=== PATIENT | male | born 1950 | race Caucasian/White ===

== ENCOUNTER 2018-08-11 19:38 | Inpatient (IN) | payer MEDICARE ==
[~2018-08-11] VITALS: Ht 185.4 cm; Wt 119.9 kg
--- NOTE | 2018-08-11 19:33 | Emergency Room Report ---
History of Present Illness General Chief Complaint: Lower Extremity Injury Source: Patient, EMS Present Illness HPI Patient is a 67-year-old male who presented for increased right-sided hip pain. Patient had sudden onset of symptoms after a fall. Patient reports of increased difficulty with movements to the hip. Patient given fentanyl 100 mcg prior to arrival by EMS. Patient been unable to ambulate after the fall. Reports being previously healthy and does not take any medications and has no allergies. He denies of the locations of injury or pain Allergies: Coded Allergies: No Known Allergies (Unverified , 08/11/18) Patient History Past Medical History: see triage record Reviewed Nursing Documentation: PMH: Agreed; PSxH: Agreed Nursing Documentation-PMH Past Medical History: No Stated History Review of Systems All Other Systems: negative except mentioned in HPI Physical Exam Vital Signs Date Time Temp Pulse Resp B/P (MAP) Pulse Ox O2 Delivery O2 Flow Rate FiO2 08/11/18 19:21 98.1 64 16 136/70 100 Room Air Sp02 EP Interpretation: reviewed, normal General Appearance: normal inspection, well appearing, no apparent distress, alert, GCS 15, non-toxic Head: atraumatic ENT: normal ENT inspection, hearing grossly normal, normal voice Neck: normal inspection, full range of motion, supple, no bony tend Respiratory: normal inspection, lungs clear, normal breath sounds, no respiratory distress, no retraction, no wheezing Cardiovascular #1: regular rate, rhythm, no edema Gastrointestinal: normal inspection, normal bowel sounds, non tender, soft, no guarding, no hernia Genitourinary: no CVA tenderness Musculoskeletal: normal inspection, back normal, normal range of motion Neurologic: normal inspection, alert, oriented x3, responsive, manager hiv III-XII nml as tested, speech normal Psychiatric: normal inspection, judgement/insight normal, mood/affect normal Skin: normal inspection, normal color, no rash Medical Decision Making Diagnostic Impression: Primary Impression: Hip fracture, right ER Course Patient is a 67-year-old male presented for increased right hip pain. Differential diagnosis include was not limited to fracture, dislocation, contusion among others. Because of complexity of patient's case laboratory testing and imaging studies were ordered. X-ray image of the pelvis showed fracture of the right proximal femur. CT imaging confirmed fracture. Patient was noted to have a fat-containing right inguinal hernia. Patient had previous left inguinal hernia surgery. EKG interpreted by me showed normal sinus rhythm with a rate of [address] or T wave changes.Laboratory testing was unremarkable Patient was given IV morphine for pain. Dr. Leandro Dietz was contacted for inpatient management due to panel physician Labs Test 08/11/18 19:45 White Blood Count 6.1 K/UL (4.8-10.8) Red Blood Count 5.02 M/UL (4.70-6.10) Hemoglobin 15.0 G/DL (14.2-18.0) Hematocrit 43.6 % (42.0-52.0) Mean Corpuscular Volume 87 FL (80-99) Mean Corpuscular Hemoglobin 29.8 PG (27.0-31.0) Mean Corpuscular Hemoglobin Concent 34.3 G/DL (32.0-36.0) Red Cell Distribution Width 11.0 % (11.6-14.8) Platelet Count 221 K/UL (150-450) Mean Platelet Volume 7.3 FL (6.5-10.1) Neutrophils (%) (Auto) 64.7 % (45.0-75.0) Lymphocytes (%) (Auto) 21.5 % (20.0-45.0) Monocytes (%) (Auto) 12.0 % (1.0-10.0) Eosinophils (%) (Auto) 0.8 % (0.0-3.0) Basophils (%) (Auto) 1.0 % (0.0-2.0) Prothrombin Time 10.3 SEC (9.30-11.50) Prothromb Time International Ratio 1.0 (0.9-1.1) Activated Partial Thromboplast Time 24 SEC (23-33) Sodium Level 140 MMOL/L (136-145) Potassium Level 3.6 MMOL/L (3.5-5.1) Chloride Level 105 MMOL/L (98-107) Carbon Dioxide Level 28 MMOL/L (21-32) Anion Gap 8 mmol/L (5-15) Blood Urea Nitrogen 11 mg/dL (7-18) Creatinine 0.9 MG/DL (0.55-1.30) Estimat Glomerular Filtration Rate > 60 mL/min (>60) Glucose Level 125 MG/DL (74-106) Calcium Level 8.7 MG/DL (8.5-10.1) Total Bilirubin 0.9 MG/DL (0.2-1.0) Aspartate Amino Transf (AST/SGOT) 19 U/L (15-37) Alanine Aminotransferase (ALT/SGPT) 27 U/L (12-78) Alkaline Phosphatase 85 U/L (46-116) Total Protein 7.2 G/DL (6.4-8.2) Albumin 3.9 G/DL (3.4-5.0) Globulin 3.3 g/dL Albumin/Globulin Ratio 1.2 (1.0-2.7) Last Vital Signs Date Time Temp Pulse Resp B/P (MAP) Pulse Ox O2 Delivery O2 Flow Rate FiO2 08/11/18 19:21 98.1 64 16 136/70 100 Room Air Status: unchanged Disposition: ADMITTED INPATIENT Condition: Stable Teddy Bishop MD Aug 11, 2018 19:33
[2018-08-11] MEDS ORDERED: Morphine Sulfate 4mg/ml Inj (IV USE ONLY) IVP ONE (20:00)
[2018-08-11 20:17] LABS: EOSINOPHILS % (AUTO) 0.8 % (0.0-3.0); HEMATOCRIT 43.6 % (42.0-52.0); LYMPHOCYTES % (AUTO) 21.5 % (20.0-45.0); MEAN CORPUSCULAR VOLUME 87 FL (80-99); NEUTROPHILS % (AUTO) 64.7 % (45.0-75.0); PLATELET COUNT 221 K/UL (150-450); RED BLOOD COUNT 5.02 M/UL (4.70-6.10); WHITE BLOOD COUNT 6.1 K/UL (4.8-10.8)
[2018-08-11 20:28] LABS: ANION GAP 8 mmol/L (5-15); BLOOD UREA NITROGEN 11 mg/dL (7-18); CALCIUM 8.7 MG/DL (8.5-10.1); CARBON DIOXIDE 28 MMOL/L (21-32); CHLORIDE 105 MMOL/L (98-107); CREATININE 0.9 MG/DL (0.55-1.30); POTASSIUM 3.6 MMOL/L (3.5-5.1); SODIUM 140 MMOL/L (136-145)
[2018-08-11 20:33] LABS: ALANINE AMINOTRANSFERASE 27 U/L (12-78); ALBUMIN 3.9 G/DL (3.4-5.0); ALBUMIN/GLOBULIN RATIO 1.2 (1.0-2.7); ALKALINE PHOSPHATASE 85 U/L (46-116); ASPARTATE AMINO TRANSFERASE 19 U/L (15-37); BILIRUBIN,TOTAL 0.9 MG/DL (0.2-1.0)
[2018-08-11 21:51] VITALS: BP 126/62
[2018-08-11 22:30] VITALS: BP 149/83
[2018-08-11] MEDS: D5NS 1,000 ML IV SCH (22:35)
[2018-08-11] MEDS ORDERED: UNOBMED (23:22)
[2018-08-12] VITALS: BP 147/80
[2018-08-12] MEDS: Morphine Sulfate 4mg/ml Inj (IV USE ONLY) IVP PRN ×5 (00:19→19:46)
[2018-08-12 04:00] VITALS: BP 119/57
[2018-08-12 08:00] VITALS: BP 115/65
--- NOTE | 2018-08-12 08:00 | Consultation ---
Consult Note Consult Note patient seen/evaluated. Right displaced subcapital femoral Neck Fracture Plan on right hip hemiarthroplasty in am. Risk, benefits, complications fully discussed. Full consult dictated. Mt Marquez MD Aug 12, 2018 08:00
[2018-08-12] MEDS: Heparin 5000 units/ml inj SUBQ SCH ×2 (08:41→21:00)
--- NOTE | 2018-08-12 11:00 | Diagnostic Imaging Report ---
Indication: Reason For Exam: PAIN Technique: Noncontrast spiral acquisitions obtained through the pelvis and right hip Multiplanar reconstructions were generated. Total dose length product 587.42 mGycm. CTDIvol(s) 19.21 mGy. Radiation dose was minimized using automated exposure control Comparison: Plain radiograph performed 20 minutes earlier Findings: There is a posteriorly angulated minimally displaced fracture of the right femoral neck. It is questionably slightly comminuted No evidence of pelvic fracture or sacral fracture. There are degenerative changes of the lumbosacral junction. No significant soft tissue contusion or hematoma demonstrated. The there are surgical clips in the left inguinal region. There is a small fat-containing right inguinal hernia.. Impression: Positive for right femoral neck fracture Incidental findings as noted This agrees with the preliminary interpretation provided overnight by [facility] teleradiology service. The CT scanner at [facility] is accredited by the [employer] and the scans are performed using protocols designed to limit radiation exposure to as low as reasonably achievable to attain images of sufficient resolution adequate for diagnostic evaluation.
--- NOTE | 2018-08-12 11:01 | Diagnostic Imaging Report ---
Indication: Right hip pain, status post fall Technique: One view of the pelvis Comparison: none Findings: There is a fracture of the right femoral neck. Surgical clips are seen in the left pelvis. Impression: Positive for right femoral neck fracture, confirmed on subsequent CT scan
--- NOTE | 2018-08-12 11:15 | History and Physical Report ---
DATE OF ADMISSION: 08/11/2018 CHIEF COMPLAINT: Right hip pain. HISTORY OF PRESENT ILLNESS: The patient is a 67-year-old male with no past medical history. He was ambulating out of his car when he tripped and fell, landing onto his right leg. He had immediate pain, was unable to ambulate. He presented to the emergency room where a CAT scan showed a minimally comminuted fracture of the right femur. He is now admitted for further evaluation and care. PAST MEDICAL HISTORY: None. PAST SURGICAL HISTORY: Includes a hernia repair. CURRENT MEDICATIONS: None. FAMILY HISTORY: Significant for mother of heart problems in her 90s and father had a heart attack in his late 70s. SOCIAL HISTORY: Negative for tobacco, ethanol, or drugs. REVIEW OF SYSTEMS: GENERAL: No fevers or chills. HEENT: No headaches or visual changes. CARDIOPULMONARY: No chest pain or shortness of breath. GASTROINTESTINAL: No nausea or vomiting. GENITOURINARY: No urgency or frequency. MUSCULOSKELETAL: No joint pain or swelling except for the right hip. NEUROLOGIC: No history of seizures. SKIN: No history of rash. PHYSICAL EXAMINATION: VITAL SIGNS: Temperature 98, pulse 96, respirations 18, and blood pressure 119/57. GENERAL: The patient is well developed, no apparent distress. HEART: Regular rate and rhythm. LUNGS: Clear. ABDOMEN: Soft, nontender, nondistended. EXTREMITIES: Without clubbing, cyanosis, or edema. DIAGNOSTIC AND LABORATORY DATA: EKG showed sinus rhythm without any acute ST-T wave changes. White count 6, hemoglobin 15, hematocrit 43, and platelets of 221. Sodium 140, potassium 3.6, chloride 105, creatinine was 0.6. INR was 1. ASSESSMENT: This is a pleasant male, no past medical history, who presents with mechanical fall from his car and a right femur fracture. He is medically stable for the planned procedure. His perioperative risk is average for age and sex. We will recommend proceeding with surgery. The patient received DVT prophylaxis after his procedure. Pain medications and hydration will be ordered for the patient. was discussed with the patient's orthopedic surgeon Dr. Marquez, as well as the patient's . The patient is in agreement with the plan of care. Leandro Dietz M.D. DR: EZEQUIEL JOB#: [id number] CC:
[2018-08-12] MEDS: D5NS 1,000 ML IV SCH (11:46)
[2018-08-12 12:00] VITALS: BP 122/56
--- NOTE | 2018-08-12 13:45 | Consultation ---
DATE OF CONSULTATION: 08/12/2018 ORTHOPEDIC CONSULTATION CONSULTING PHYSICIAN: Mt Marquez M.D. REASON FOR CONSULTATION: Right-sided hip pain. BRIEF HISTORY: The patient is a pleasant 67-year-old gentleman, who presented to the emergency room [facility] with sudden onset of pain in the right hip after a fall. The patient states that he was walking and tripped over a sidewalk and had a significant impact and that he fell down. He was unable to move his hip. X-rays were obtained, which showed a femoral neck fracture and the CT scan confirmed a displaced subcapital femoral neck fracture with varus deformity. He does not have any numbness, tingling, or weakness. He is here for evaluation and treatment of right hip. PAST MEDICAL HISTORY: Significant for none. PAST SURGICAL HISTORY: None. MEDICATIONS: Not taking any. ALLERGIES: No known drug allergies. SOCIAL HISTORY: He does not smoke or drink. He is a salesman. He is in very good shape for his age. REVIEW OF SYSTEMS: Noncontributory. PHYSICAL EXAMINATION: EXTREMITIES: Examination of the right hip reveals that the right leg is shortened and externally rotated. Neurological examination is grossly intact. He is able to wiggle his toes. Any motion of the hip causes severe pain. DIAGNOSTIC DATA: X-rays of the right hip is reviewed. There is a Garden III displaced subcapital femoral neck fracture with varus deformity. CT scan confirmed this. IMPRESSION: Right hip displaced femoral neck fracture. PLAN: At this time, I had discussion with the patient. I explained to him my findings. I recommend that we proceed with right hip hemiarthroplasty. We talked about the option of open reduction or closed reduction and percutaneous pinning. However, considering the subcapital location, loss of blood supply, and displacement, the operation would give him the best result. At this point, we will do right hip hemiarthroplasty. At this time, we will avoid right total hip arthroplasty because of increased risk of dislocation. The patient understands and agrees with the treatment plan. We will go ahead and get him set up to proceed with surgery. He will be NPO past midnight and consent will be signed. All questions were answered. Mt Elzbieta Marquez DR: MARISELA JOB#: [id number] CC:
[2018-08-12 16:00] VITALS: BP 125/65
--- NOTE | 2018-08-12 17:56 | Anethesia Preoperative Eval ---
Anesthesia Pre-op PMH/ROS General Date of Evaluation: Aug 12, 2018 Time of Evaluation: 17:55 Anesthesiologist: reinaldo ASA Score: ASA 2 Mallampati Score Class I : Soft palate, uvula, fauces, pillars visible Class II: Soft palate, uvula, fauces visible Class III: Soft palate, base of uvula visible Class IV: Only hard plate visible Mallampati Classification: Class II Surgeon: alden Diagnosis: hip fx Surgical Procedure: right hip arthroplasty Anesthesia History: none Family History: no anesthesia problems Allergies: Coded Allergies: No Known Allergies (Unverified , 08/11/18) Medications: see eMAR Patient NPO?: Yes NPO Date: Aug 12, 2018 NPO Time: 00:01 Past Medical History Cardiovascular: Denies: HTN, CAD, IA, valve dz, arrhythmia, other Pulmonary: Denies: asthma, COPD, LIGIA, other Gastrointestinal/Genitourinary: Denies: GERD, CRI, ESRD, other Neurologic/Psychiatric: Denies: dementia, CVA, depression/anxiety, TIA, other Endocrine: Denies: DM, hypothyroidism, steroids, other HEENT: Denies: cataract (L), cataract (R), glaucoma, [place] (L), [place] (R), other Hematology/Immune: Denies: anemia, DVT, bleeding disorder, other Musculoskeletal/Integumentary: Denies: OA, RA, DJD, DDD, edema, other PSxH Narrative: hernia repair Anesthesia Pre-op Phys. Exam Physician Exam Last Vital Signs Date Time Temp Pulse Resp B/P (MAP) Pulse Ox O2 Delivery O2 Flow Rate FiO2 08/12/18 16:00 99.5 73 17 125/65 (85) 96 08/12/18 07:20 Room Air Constitutional: NAD Neurologic: CN 2-12 intact Cardiovascular: RRR Respiratory: CTA Gastrointestinal: S/NT/ND Airway Exam Mallampati Classification 2 Mallampati Score: Class II MO: full ROM: full Dentures: no upper, no lower Anesthesia Pre-op A/P Labs Hematology Test 08/11/18 19:45 White Blood Count 6.1 K/UL (4.8-10.8) Red Blood Count 5.02 M/UL (4.70-6.10) Hemoglobin 15.0 G/DL (14.2-18.0) Hematocrit 43.6 % (42.0-52.0) Mean Corpuscular Volume 87 FL (80-99) Mean Corpuscular Hemoglobin 29.8 PG (27.0-31.0) Mean Corpuscular Hemoglobin Concent 34.3 G/DL (32.0-36.0) Red Cell Distribution Width 11.0 % (11.6-14.8) L Platelet Count 221 K/UL (150-450) Mean Platelet Volume 7.3 FL (6.5-10.1) Neutrophils (%) (Auto) 64.7 % (45.0-75.0) Lymphocytes (%) (Auto) 21.5 % (20.0-45.0) Monocytes (%) (Auto) 12.0 % (1.0-10.0) H Eosinophils (%) (Auto) 0.8 % (0.0-3.0) Basophils (%) (Auto) 1.0 % (0.0-2.0) Coagulation Test 08/11/18 19:45 Prothrombin Time 10.3 SEC (9.30-11.50) Prothromb Time International Ratio 1.0 (0.9-1.1) Activated Partial Thromboplast Time 24 SEC (23-33) Chemistry Test 08/11/18 19:45 Sodium Level 140 MMOL/L (136-145) Potassium Level 3.6 MMOL/L (3.5-5.1) Chloride Level 105 MMOL/L (98-107) Carbon Dioxide Level 28 MMOL/L (21-32) Anion Gap 8 mmol/L (5-15) Blood Urea Nitrogen 11 mg/dL (7-18) Creatinine 0.9 MG/DL (0.55-1.30) Estimat Glomerular Filtration Rate > 60 mL/min (>60) Glucose Level 125 MG/DL (74-106) H Calcium Level 8.7 MG/DL (8.5-10.1) Total Bilirubin 0.9 MG/DL (0.2-1.0) Aspartate Amino Transf (AST/SGOT) 19 U/L (15-37) Alanine Aminotransferase (ALT/SGPT) 27 U/L (12-78) Alkaline Phosphatase 85 U/L (46-116) Total Protein 7.2 G/DL (6.4-8.2) Albumin 3.9 G/DL (3.4-5.0) Globulin 3.3 g/dL Albumin/Globulin Ratio 1.2 (1.0-2.7) Studies Pre-op Studies: EKG - sr Risk Assessment & Plan Plan: general vs spinal Trudy Kraft CRNA Aug 12, 2018 17:56
[2018-08-12 20:00] VITALS: BP 128/71
[2018-08-13] VITALS (14 sets, daily range): BP systolic 113–131; BP diastolic 58–78
[2018-08-13] MEDS: D5 1/2NS 1,000 ML IV SCH ×2 (00:22→13:20)
[2018-08-13] MEDS: Morphine Sulfate 4mg/ml Inj (IV USE ONLY) IVP PRN ×3 (00:28→09:06)
--- NOTE | 2018-08-13 06:59 | Pre-Procedure Note/Attestation ---
Pre-Procedure Note/Attestation Complete Prior to Procedure Planned Procedure: right Procedure Narrative: rt hip hemiarthroplasty Indications for Procedure Pre-Operative Diagnosis: rt hip fracture Attestation I attest that I discussed the nature of the procedure; its benefits; risks and complications; and alternatives (and the risks and benefits of such alternatives ), prior to the procedure, with the patient (or the patient's legal customer assistance representative). I attest that, if there was a reasonable possibility of needing a blood transfusion, the patient (or the patient's legal customer assistance representative) was given the [facility] standardized written summary, pursuant to the Dax Fazal Blood Safety Act ([place] Health and Safety Code # 1645, as amended). I attest that I re-evaluated the patient just prior to the surgery and that there has been no change in the patient's H&P, except as documented below: NONE Mt Marquez MD Aug 13, 2018 06:59
[2018-08-13] MEDS: Heparin 5000 units/ml inj SUBQ SCH (09:00)
[2018-08-13] MEDS ORDERED: NeoSporin Gu Irrig 1ml Amp IRRIG ONE (12:02)
[2018-08-13] MEDS ORDERED: Bacitracin 50000 Units Vial ONE (12:02)
[2018-08-13] MEDS ORDERED: EPINEPHrine 1mg/1ml Amp ONE (12:14)
[2018-08-13] MEDS ORDERED: Duramorph PF 5mg/10ml amp ONE (12:14)
[2018-08-13] MEDS ORDERED: Bupivacaine 0.5% Inj 30 ml vial INJ ONE (12:15)
[2018-08-13] MEDS ORDERED: Alfentanil 2ml Inj ONE (12:27)
[2018-08-13] MEDS ORDERED: Sterile Water Irrig 1000ml IRRIG ONE (12:30)
[2018-08-13] MEDS ORDERED: NS Irrig 1000ml ONE (12:30)
[2018-08-13] MEDS ORDERED: LR 1000ml ONE (12:30)
[2018-08-13] MEDS ORDERED: LR 1000ml 1,000 ML IVLG SCH (12:31)
[2018-08-13] MEDS ORDERED: Dexamethasone 4mg/ml vial ONE (12:34)
[2018-08-13] MEDS ORDERED: Lidocaine 1% MPF 10mg/ml 5ml ONE (12:34)
[2018-08-13] MEDS ORDERED: Propofol 200mg/20ml IV ONE (12:34)
[2018-08-13] MEDS ORDERED: NS Irrig 2000ml IRRIG ONE (12:36)
[2018-08-13] MEDS ORDERED: HYDROcodone/Acetamin 7.5/325 tab ORAL PRN ×2 (12:45→13:30)
[2018-08-13] MEDS ORDERED: oxyCODONE HCL/Acetaminophen 5/325mg ORAL PRN (12:45)
[2018-08-13] MEDS ORDERED: DiphenhydrAMINE 50mg/ml Inj IVP PRN (12:45)
[2018-08-13] MEDS ORDERED: Midazolam 2mg/2ml Inj IVP PRN (12:45)
[2018-08-13] MEDS ORDERED: Hydromorphone 0.5mg/0.5ml inj IVP PRN (12:45)
[2018-08-13] MEDS ORDERED: HYDROcodone/Acetamin 5/325 tab ORAL PRN ×2 (12:45→13:30)
[2018-08-13] MEDS ORDERED: Metoclopramide 10mg/2ml Inj IVP PRN (12:45)
[2018-08-13] MEDS ORDERED: Atropine Sulfate 0.4mg/ml inj IVP PRN (12:45)
[2018-08-13] MEDS ORDERED: LORazepam Inj 2mg/ml 1ml IV PRN (12:45)
[2018-08-13] MEDS ORDERED: Meperidine 50mg/ml Inj(FOR RIGORS ONLY) IVP PRN (12:45)
[2018-08-13] MEDS ORDERED: Labetalol 5mg/ml 20ml vial IV PRN (12:45)
[2018-08-13] MEDS ORDERED: fentaNYL 100 mcg/2 mL IV PRN (12:45)
[2018-08-13] MEDS ORDERED: ePHEDrine 50mg/ml Inj ONE (13:14)
--- NOTE | 2018-08-13 13:25 | Immediate Post-Op Evaluation ---
Immediate Post-Op Evalulation Immediate Post-Op Evalulation Procedure: Right Hip Hemiartroplasty Date of Evaluation: Aug 13, 2018 Time of Evaluation: 15:03 IV Fluids: 1000 LR Blood Products: 0 Estimated Blood Loss: 75 Urinary Output: 200 Blood Pressure Systolic: 122 Blood Pressure Diastolic: 69 Pulse Rate: 94 Respiratory Rate: 16 O2 Sat by Pulse Oximetry: 96 Temperature (Fahrenheit): 98.3 Pain Score (1-10): 1 Nausea: No Vomiting: No Complications 0 Patient Status: awake, reacts, patent, none Hydration Status: adequate Dru Grams Ancef IV Given Within 1 Hr of Incision: Yes Time Given: 13:01 Gla Watson MD Aug 13, 2018 13:24
[2018-08-13] MEDS ORDERED: Milk of Magnesia 30ml Ud ORAL PRN (13:30)
[2018-08-13] MEDS ORDERED: HYDROmorphone 1mg/ml Carpuject SUBQ PRN (13:30)
[2018-08-13] MEDS ORDERED: Tranexamic Acid 1,000 MG in NS 65 ML IV ONE (13:45)
--- NOTE | 2018-08-13 14:28 | General Progress Note ---
Assessment/Plan Problem List: (1) Hip fracture, right ICD Codes: S72.001A - Fracture of unspecified part of neck of right femur, initial encounter for closed fracture SNOMED: 512198489 Status: stable Assessment/Plan: stable for surgery average risk for age and sex dvt prophylaxis pain rx will follow up postop Subjective Time patient seen: 06:50 Constitutional: Reports: no symptoms HEENT: Reports: no symptoms Cardiovascular: Reports: no symptoms Respiratory: Reports: no symptoms Gastrointestinal/Abdominal: Reports: no symptoms Genitourinary: Reports: no symptoms Neurologic/Psychiatric: Reports: no symptoms Endocrine: Reports: no symptoms Hematologic/Lymphatic: Reports: no symptoms Allergies: Coded Allergies: No Known Allergies (Unverified , 08/11/18) All Systems: reviewed and negative except above Subjective no new complaints. stable. pain is mostly controlled. no cp.sob Objective Last 24 Hour Vital Signs Date Time Temp Pulse Resp B/P (MAP) Pulse Ox O2 Delivery O2 Flow Rate FiO2 08/13/18 09:36 99.8 08/13/18 09:00 Room Air 08/13/18 08:00 99.8 71 17 123/78 (93) 95 08/13/18 04:00 98.4 84 18 129/76 (93) 99 08/12/18 21:00 Room Air 08/12/18 20:00 99.5 82 20 128/71 (90) 96 08/12/18 16:00 99.5 73 17 125/65 (85) 96 Intake and Output 08/12/18 08/13/18 19:00 07:00 Intake Total 1490 ml 750 ml Output Total 700 ml Balance 790 ml 750 ml Intake Oral 740 ml IV Total 750 ml 750 ml Output Urine Total 700 ml # Voids 2 2 Height (Feet): 6 Height (Inches): 1.00 Weight (Pounds): 240 General Appearance: WD/WN, alert Cardiovascular: regular rhythm Respiratory/Chest: chest wall non-tender, lungs clear Abdomen: normal bowel sounds, non tender, soft Edema: no edema noted Arm (L), no edema noted Arm (R), no edema noted Leg (L), no edema noted Leg (R), no edema noted Pedal (L), no edema noted Pedal (R), no edema noted Generalized Leandro Dietz MD Aug 13, 2018 14:28
--- NOTE | 2018-08-13 14:43 | Brief Operative Note ---
Immediate Post Operative Note Operative Note Chief Complaint: rt hip pain Pre-op Diagnosis: rt hip femoral neck fracture Procedure: rt hip hemiarthroplasty Post-op Diagnosis: same as pre-op Findings: consistent w/pre-op dx studies Surgeon: md valeriy Paraoptometric: river vallejo Anesthesiologist: md ray Anesthesia: general Specimen: yes Complications: none Condition: stable Fluids: ns Estimated Blood Loss: minimal Drains: none Implant(s) used?: Yes - Kisha Franklin Aug 13, 2018 14:43
[2018-08-13] MEDS ORDERED: D5 1/2NS 1000ml IV ONE (14:49)
[2018-08-13] MEDS ORDERED: D5NS 1000ml IV ONE (14:49)
--- NOTE | 2018-08-13 16:09 | Diagnostic Imaging Report ---
Indication: Status post right hip replacement Findings: Single AP view of the pelvis was performed. No acute fracture is identified. Bilateral hips and sacroiliac joints appear symmetric.There is no malalignment. Soft tissues are unremarkable. There is a right hip hemiarthroplasty. Soft tissue air noted. Grewal catheter is noted. Impression: Status post right hip replacement
[2018-08-13] MEDS: Docusate 100mg cap ORAL SCH (17:56)
[2018-08-13] MEDS: D5 1/2NS w/KCl 20mEq 1,000 ML IV SCH (17:57)
--- NOTE | 2018-08-13 19:45 | Operative Note - Dictated ---
DATE OF OPERATION: 08/13/2018 PREOPERATIVE DIAGNOSIS: Right hip subcapital displaced femoral neck fracture. POSTOPERATIVE DIAGNOSIS: Right hip subcapital displaced femoral neck fracture. PROCEDURE: Right hip hemiarthroplasty using Clarice system, size 7 Accolade high offset stem, +0 28 mm head and a 50 mm bipolar component noncemented. SURGEON: Mt Marquez M.D. CERAMICS TEST ENGINEER: Kisha Hayes PA-C. ANESTHESIOLOGIST: Gal Watson M.D. ANESTHESIA: Spinal anesthesia. ESTIMATED BLOOD LOSS: Less than 100 mL. COMPLICATIONS: None. BRIEF HISTORY: The patient is a pleasant and very healthy 68-year-old gentleman who sustained a mechanical fall and broke his right hip. The hip fracture was displaced and subcapital. After full discussion of risks, benefits of surgery and complications associated with it including infection, bleeding, neurovascular complication, possibility of femur fracture during surgery, possibility of DVT, PE, leg length discrepancy, continued pain, limping, and inability to ambulate as prior to the fall, he opted for surgical treatment as described above. The patient also had a very good friend that is orthopedic surgeon and he consulted with him and possibility of doing a total hip arthroplasty was discussed. After discussion with me regarding additional complication of increased hip dislocation after a total hip arthroplasty, he opted to proceed with hemiarthroplasty. His advisor who is orthopedic surgeon agreed with the hemiarthroplasty. OPERATIVE PROCEDURE: The patient was brought to the operating room table and was placed supine. All pressure points well padded. The patient was placed in the left lateral decubitus position with the right hip up. All pressure points well padded and the patient was stabilized using pegboard. At this point, the right hip was prepped and draped in usual sterile fashion and time-out was performed. Preoperative antibiotics were given. At this point, a posterior lateral approach to the hip was undertaken. The incision was taken through the subcutaneous tissue down to the fascia. The fascia was then opened. Short external rotators were located and they were released and piriformis was released. The capsule was T'd and the capsule and the piriformis were tagged for later repair onto the greater trochanter with #2 FiberWire sutures. At this point, using a threaded Steinmann pin, the femoral head was removed. The neck appeared to be 1.5 cm long and therefore a femoral neck cut was performed. This was approximately 1 cm proximal to the lesser trochanter. Once this was completed, the acetabulum was visualized with no loose fragments, loose bodies, or bone chips. The cartilage was well maintained. There was no bleeding. At this point, the stem was thoroughly irrigated and care was given to the femur. The hip was internally rotated. Zaman retractor was placed and appropriate retractors were placed. Using a cookie cutter, the entry point into the femur was lateralized. Subsequently, a canal finer was used to obtain access into the intramedullary canal and sequential broaching was performed from size 0 to size 7 broach. A size 7 broach provided excellent axial as well as rotational stability. Once this was completed, the trialing was performed. Size 0 neck length with a high offset neck and 50 mm bipolar trials were assembled and applied and the entire construct was reduced. The hip range of motion was checked and appeared to be excellent. The soft tissue tension was checked and appeared to be excellent. The leg lengths appeared to be equal. The stability was checked at 0, 30 degrees, 45 degrees, 90 degrees of flexion with neutral adduction and the hip could be internally rotated all the way up to 70 degrees without instability. At this point, the hip was redislocated and the trial components were removed. The acetabulum and the femoral canal was thoroughly irrigated using copious amount of fluid. Simpulse irrigation was used. The soft tissue was irrigated as well. At this point, a size 7 Accolade high offset stem combined with a 28 mm head with 0 neck length and a 50 mm bipolar components were assembled and were applied without any complication, which seated very well and there was no rotational instability or axial instability. At this point, the entire construct was then reduced. The capsule was then closed using #2 FiberWire suture through the drill hole in the trochanter. The wounds were then thoroughly irrigated using copious amount of fluid with Simpulse irrigation. The tensor fascia was closed using #1 Vicryl suture. Subcutaneous tissue was closed using 2-0 Vicryl suture. Skin was closed using 3-0 Monocryl suture. Dermabond was applied. All lap counts and instrument counts were correct. Mt Elzbieta Marquez DR: VINICIO JOB#: [id number] CC:
[2018-08-13] MEDS: oxyCONTIN 20mg tab ORAL SCH (21:06)
[2018-08-13] MEDS: ceFAZolin sod 2 GM in D5W 110 ML IV SCH (21:06)
[2018-08-14 00:16] VITALS: BP 102/56
[2018-08-14] MEDS: ceFAZolin sod 2 GM in D5W 110 ML IV SCH (04:38)
[2018-08-14] MEDS: D5 1/2NS w/KCl 20mEq 1,000 ML IV SCH ×2 (06:19→19:40)
[2018-08-14 07:15] LABS: BASOPHILS % (AUTO) 0.2 % (0.0-2.0); HEMATOCRIT 37.9 % (42.0-52.0); HEMOGLOBIN 13.2 G/DL (14.2-18.0); LYMPHOCYTES % (AUTO) 7.2 % (20.0-45.0); MEAN CORPUSCULAR VOLUME 88 FL (80-99); MONOCYTES % (AUTO) 13.8 % (1.0-10.0); NEUTROPHILS % (AUTO) 78.7 % (45.0-75.0); PLATELET COUNT 182 K/UL (150-450); RED CELL DISTRIBUTION WIDTH 11.4 % (11.6-14.8); WHITE BLOOD COUNT 11.1 K/UL (4.8-10.8)
[2018-08-14 07:18] LABS: ANION GAP 6 mmol/L (5-15); BLOOD UREA NITROGEN 12 mg/dL (7-18); CALCIUM 7.8 MG/DL (8.5-10.1); CARBON DIOXIDE 29 MMOL/L (21-32); CHLORIDE 100 MMOL/L (98-107); CREATININE 0.9 MG/DL (0.55-1.30); POTASSIUM 4.5 MMOL/L (3.5-5.1); SODIUM 135 MMOL/L (136-145)
[2018-08-14 08:00] VITALS: BP 127/66
--- NOTE | 2018-08-14 08:03 | General Progress Note ---
Assessment/Plan Problem List: (1) Hip fracture, right ICD Codes: S72.001A - Fracture of unspecified part of neck of right femur, initial encounter for closed fracture SNOMED: 612654710 Status: stable, progressing Assessment/Plan: pt/ot dvt prophylaxis pain rx Subjective ROS Limited/Unobtainable: No Constitutional: Reports: weakness HEENT: Reports: no symptoms Cardiovascular: Reports: no symptoms Respiratory: Reports: no symptoms Gastrointestinal/Abdominal: Reports: no symptoms Genitourinary: Reports: no symptoms Neurologic/Psychiatric: Reports: no symptoms Endocrine: Reports: no symptoms Hematologic/Lymphatic: Reports: no symptoms Allergies: Coded Allergies: No Known Allergies (Unverified , 08/11/18) All Systems: reviewed and negative except above Subjective no new complaints. stable. pain is mostly controlled. no cp.sob s/p right hemiarthroplasty. tolerated well. Objective Last 24 Hour Vital Signs Date Time Temp Pulse Resp B/P (MAP) Pulse Ox O2 Delivery O2 Flow Rate FiO2 08/14/18 00:16 98.4 86 19 102/56 (71) 94 08/13/18 21:00 Room Air 08/13/18 20:00 98.0 86 20 124/71 (88) 94 08/13/18 17:45 98.6 88 20 121/58 (79) 95 08/13/18 16:45 99.0 87 21 131/73 (92) 94 08/13/18 16:15 98.6 81 18 128/71 (90) 95 08/13/18 16:12 85 15 123/69 98 Nasal Cannula 3 08/13/18 16:00 97.5 81 16 126/65 98 Nasal Cannula 3 08/13/18 15:45 85 15 123/69 98 Nasal Cannula 3 08/13/18 15:30 79 16 115/59 98 Nasal Cannula 3 08/13/18 15:20 81 14 113/66 98 Nasal Cannula 3 08/13/18 15:10 92 15 121/67 98 Nasal Cannula 3 08/13/18 15:00 96 17 119/66 96 Nasal Cannula 3 08/13/18 14:52 97.5 96 16 122/69 98 Nasal Cannula 3 08/13/18 14:50 94 16 96 08/13/18 09:36 99.8 08/13/18 09:00 Room Air Intake and Output 08/13/18 08/14/18 19:00 07:00 Intake Total 450 ml 360 ml Output Total 700 ml 350 ml Balance -250 ml 10 ml Intake Oral 50 ml 360 ml IV Total 400 ml Output Urine Total 700 ml 350 ml # Voids 1 # Bowel Movements 1 Laboratory Tests 08/14/18 05:10: White Blood Count 11.1H, Red Blood Count 4.30L, Hemoglobin 13.2L, Hematocrit 37.9L, Mean Corpuscular Volume 88, Mean Corpuscular Hemoglobin 30.7, Mean Corpuscular Hemoglobin Concent 34.9, Red Cell Distribution Width 11.4L, Platelet Count 182, Mean Platelet Volume 8.7, Neutrophils (%) (Auto) 78.7H, Lymphocytes (%) (Auto) 7.2L, Monocytes (%) (Auto) 13.8H, Eosinophils (%) (Auto) 0.0, Basophils (%) (Auto) 0.2, Sodium Level 135L, Potassium Level 4.5, Chloride Level 100, Carbon Dioxide Level 29, Anion Gap 6, Blood Urea Nitrogen 12, Creatinine 0.9, Estimat Glomerular Filtration Rate > 60, Glucose Level 147H, Calcium Level 7.8L Height (Feet): 6 Height (Inches): 1.00 Weight (Pounds): 264 General Appearance: WD/WN, alert Neck: supple Cardiovascular: regular rhythm Respiratory/Chest: chest wall non-tender, lungs clear, normal breath sounds Abdomen: normal bowel sounds, non tender, soft, no organomegaly Edema: no edema noted Arm (L), no edema noted Arm (R), no edema noted Leg (L), no edema noted Leg (R), no edema noted Pedal (L), no edema noted Pedal (R), no edema noted Generalized Neurologic: optician II-XII grossly normal, no motor/sensory deficits, abnormal gait Leandro Dietz MD August 14, 2018 08:03
--- NOTE | 2018-08-14 08:14 | Orthopedic Progress Note ---
Orthopedic - Progress Note Subjective Symptoms: improved Objective Laboratory Tests Test 08/14/18 05:10 White Blood Count 11.1 K/UL (4.8-10.8) H Red Blood Count 4.30 M/UL (4.70-6.10) L Hemoglobin 13.2 G/DL (14.2-18.0) L Hematocrit 37.9 % (42.0-52.0) L Mean Corpuscular Volume 88 FL (80-99) Mean Corpuscular Hemoglobin 30.7 PG (27.0-31.0) Mean Corpuscular Hemoglobin Concent 34.9 G/DL (32.0-36.0) Red Cell Distribution Width 11.4 % (11.6-14.8) L Platelet Count 182 K/UL (150-450) Mean Platelet Volume 8.7 FL (6.5-10.1) Neutrophils (%) (Auto) 78.7 % (45.0-75.0) H Lymphocytes (%) (Auto) 7.2 % (20.0-45.0) L Monocytes (%) (Auto) 13.8 % (1.0-10.0) H Eosinophils (%) (Auto) 0.0 % (0.0-3.0) Basophils (%) (Auto) 0.2 % (0.0-2.0) Sodium Level 135 MMOL/L (136-145) L Potassium Level 4.5 MMOL/L (3.5-5.1) Chloride Level 100 MMOL/L (98-107) Carbon Dioxide Level 29 MMOL/L (21-32) Anion Gap 6 mmol/L (5-15) Blood Urea Nitrogen 12 mg/dL (7-18) Creatinine 0.9 MG/DL (0.55-1.30) Estimat Glomerular Filtration Rate > 60 mL/min (>60) Glucose Level 147 MG/DL (74-106) H Calcium Level 7.8 MG/DL (8.5-10.1) L Last 24 Hour Vital Signs Date Time Temp Pulse Resp B/P (MAP) Pulse Ox O2 Delivery O2 Flow Rate FiO2 08/14/18 00:16 98.4 86 19 102/56 (71) 94 08/13/18 21:00 Room Air 08/13/18 20:00 98.0 86 20 124/71 (88) 94 08/13/18 17:45 98.6 88 20 121/58 (79) 95 08/13/18 16:45 99.0 87 21 131/73 (92) 94 08/13/18 16:15 98.6 81 18 128/71 (90) 95 08/13/18 16:12 85 15 123/69 98 Nasal Cannula 3 08/13/18 16:00 97.5 81 16 126/65 98 Nasal Cannula 3 08/13/18 15:45 85 15 123/69 98 Nasal Cannula 3 08/13/18 15:30 79 16 115/59 98 Nasal Cannula 3 08/13/18 15:20 81 14 113/66 98 Nasal Cannula 3 08/13/18 15:10 92 15 121/67 98 Nasal Cannula 3 08/13/18 15:00 96 17 119/66 96 Nasal Cannula 3 08/13/18 14:52 97.5 96 16 122/69 98 Nasal Cannula 3 08/13/18 14:50 94 16 96 08/13/18 09:36 99.8 08/13/18 09:00 Room Air Intake and Output 08/13/18 08/14/18 19:00 07:00 Intake Total 450 ml 360 ml Output Total 700 ml 350 ml Balance -250 ml 10 ml Intake Oral 50 ml 360 ml IV Total 400 ml Output Urine Total 700 ml 350 ml # Voids 1 # Bowel Movements 1 Laboratory Tests Test 08/14/18 05:10 White Blood Count 11.1 K/UL (4.8-10.8) H Red Blood Count 4.30 M/UL (4.70-6.10) L Hemoglobin 13.2 G/DL (14.2-18.0) L Hematocrit 37.9 % (42.0-52.0) L Mean Corpuscular Volume 88 FL (80-99) Mean Corpuscular Hemoglobin 30.7 PG (27.0-31.0) Mean Corpuscular Hemoglobin Concent 34.9 G/DL (32.0-36.0) Red Cell Distribution Width 11.4 % (11.6-14.8) L Platelet Count 182 K/UL (150-450) Mean Platelet Volume 8.7 FL (6.5-10.1) Neutrophils (%) (Auto) 78.7 % (45.0-75.0) H Lymphocytes (%) (Auto) 7.2 % (20.0-45.0) L Monocytes (%) (Auto) 13.8 % (1.0-10.0) H Eosinophils (%) (Auto) 0.0 % (0.0-3.0) Basophils (%) (Auto) 0.2 % (0.0-2.0) Sodium Level 135 MMOL/L (136-145) L Potassium Level 4.5 MMOL/L (3.5-5.1) Chloride Level 100 MMOL/L (98-107) Carbon Dioxide Level 29 MMOL/L (21-32) Anion Gap 6 mmol/L (5-15) Blood Urea Nitrogen 12 mg/dL (7-18) Creatinine 0.9 MG/DL (0.55-1.30) Estimat Glomerular Filtration Rate > 60 mL/min (>60) Glucose Level 147 MG/DL (74-106) H Calcium Level 7.8 MG/DL (8.5-10.1) L Wound: clean, dry, intact Drains: none Neuro Status: normal Vascular Status: normal Additional Comments Xray reviewed Assessment Post-op Diagnosis POD 1 Procedure Performed rt hip hemiarthroplasty Plan Plan: PT, discharge plan - fu Dr. Woo 2 weeks Kisha Hayes August 14, 2018 08:14
[2018-08-14] MEDS: Enoxaparin 40mg Inj SUBQ SCH (09:22)
[2018-08-14] MEDS: oxyCONTIN 20mg tab ORAL SCH ×2 (09:24→21:10)
[2018-08-14] MEDS: celeBREX 200mg Cap **SURGERY PATIENTS ONLY ORAL SCH (09:24)
[2018-08-14] MEDS: Docusate 100mg cap ORAL SCH ×3 (09:25→18:07)
--- NOTE | 2018-08-14 09:50 | 48 Hour Post Anesthesia Eval ---
Post Anesthesia Evaluation Procedure: Right Hip Hemiartroplasty Date of Evaluation: August 14, 2018 Airway: patent Nausea: No Vomiting: No Pain Intensity: 2 Hydration Status: adequate Cardiopulmonary Status: at baseline Mental Status/LOC: patient returned to baseline Post-Anesthesia Complications: 0 Follow-up care needed: N/A - further care as per priamry team Miroslava Medley MD August 14, 2018 09:50
[2018-08-14 12:00] VITALS: BP 125/72
[2018-08-14 16:00] VITALS: BP 106/64
[2018-08-14 20:00] VITALS: BP 131/72
[2018-08-14] MEDS: Vitamin B-12 500mcg tab ORAL SCH (21:10)
--- NOTE | 2018-08-15 00:58 | Cardiology Report ---
APPROVED REPORT EKG Measurement Heart [id number] Normal sinus rhythm with sinus arrhythmia Normal ECG
[2018-08-15 04:00] VITALS: BP 98/64
[2018-08-15 07:00] LABS: BASOPHILS % (AUTO) 0.6 % (0.0-2.0); LYMPHOCYTES % (AUTO) 13.7 % (20.0-45.0); MEAN CORPUSCULAR VOLUME 88 FL (80-99); MONOCYTES % (AUTO) 17.6 % (1.0-10.0); NEUTROPHILS % (AUTO) 67.2 % (45.0-75.0); PLATELET COUNT 180 K/UL (150-450); RED BLOOD COUNT 4.31 M/UL (4.70-6.10); RED CELL DISTRIBUTION WIDTH 11.3 % (11.6-14.8); WHITE BLOOD COUNT 8.2 K/UL (4.8-10.8)
[2018-08-15 08:00] VITALS: BP 105/58
[2018-08-15] MEDS ORDERED: Milk of Magnesia 30ml Ud ORAL PRN (08:15)
[2018-08-15] MEDS ORDERED: Miralax 17gm pkt ORAL PRN (08:15)
[2018-08-15] MEDS: Enoxaparin 40mg Inj SUBQ SCH (09:44)
[2018-08-15] MEDS: celeBREX 200mg Cap **SURGERY PATIENTS ONLY ORAL SCH (09:47)
[2018-08-15] MEDS: oxyCONTIN 20mg tab ORAL SCH ×2 (09:48→20:23)
[2018-08-15] MEDS: Docusate 100mg cap ORAL SCH ×3 (09:49→18:35)
[2018-08-15] MEDS: Vitamin B-12 500mcg tab ORAL SCH (09:49)
[2018-08-15 12:00] VITALS: BP 93/69
[2018-08-15 16:00] VITALS: BP 109/68
[2018-08-15 20:00] VITALS: BP 106/60
[2018-08-16 04:00] VITALS: BP 113/70
[2018-08-16 07:00] LABS: BASOPHILS % (AUTO) 0.8 % (0.0-2.0); EOSINOPHILS % (AUTO) 1.9 % (0.0-3.0); HEMATOCRIT 38.4 % (42.0-52.0); HEMOGLOBIN 13.2 G/DL (14.2-18.0); LYMPHOCYTES % (AUTO) 16.2 % (20.0-45.0); MEAN CORPUSCULAR VOLUME 88 FL (80-99); MONOCYTES % (AUTO) 19.4 % (1.0-10.0); NEUTROPHILS % (AUTO) 61.8 % (45.0-75.0); PLATELET COUNT 201 K/UL (150-450); RED BLOOD COUNT 4.35 M/UL (4.70-6.10); RED CELL DISTRIBUTION WIDTH 11.2 % (11.6-14.8); WHITE BLOOD COUNT 6.9 K/UL (4.8-10.8)
--- NOTE | 2018-08-16 07:06 | Orthopedic Progress Note ---
Orthopedic - Progress Note Subjective Additional Comments minimal hip pain, walking down the halls, Wants to take a shower. Complains of some clicking in the posterior aspect of the hip. Not painful. Objective Last 24 Hour Vital Signs Date Time Temp Pulse Resp B/P (MAP) Pulse Ox O2 Delivery O2 Flow Rate FiO2 08/16/18 04:00 99.0 78 20 113/70 (84) 95 08/15/18 21:00 Room Air 08/15/18 20:00 98.8 94 18 106/60 (75) 96 08/15/18 16:00 97.9 83 18 109/68 (82) 98 08/15/18 12:00 98.0 99 22 93/69 (77) 99 08/15/18 09:00 Room Air 08/15/18 08:00 98.6 94 20 105/58 (74) 98 Intake and Output 08/15/18 08/16/18 19:00 07:00 Intake Total 720 ml 480 ml Output Total 800 ml Balance 720 ml -320 ml Intake Oral 720 ml 480 ml Output Urine Total 800 ml Laboratory Tests Test 08/16/18 05:47 White Blood Count Pending Red Blood Count Pending Hemoglobin Pending Hematocrit Pending Mean Corpuscular Volume Pending Mean Corpuscular Hemoglobin Pending Mean Corpuscular Hemoglobin Concent Pending Red Cell Distribution Width Pending Platelet Count Pending Mean Platelet Volume Pending Neutrophils (%) (Auto) Pending Lymphocytes (%) (Auto) Pending Monocytes (%) (Auto) Pending Eosinophils (%) (Auto) Pending Basophils (%) (Auto) Pending Wound: clean, dry, intact Neuro Status: normal Additional Comments Good ROM, no pain. Ambulating with a walker normally. No audible click noted. leg length are equal Assessment Post-op Diagnosis right hip hemiarthroplasty Plan Plan: PT, discharge to home Additional Comments f/u in 2 weeks Mt Marquez MD August 16, 2018 07:06
[2018-08-16 08:00] VITALS: BP 124/66
[2018-08-16] MEDS: celeBREX 200mg Cap **SURGERY PATIENTS ONLY ORAL SCH (09:00)
[2018-08-16] MEDS: oxyCONTIN 20mg tab ORAL SCH (09:00)
[2018-08-16] MEDS: Enoxaparin 40mg Inj SUBQ SCH (09:52)
[2018-08-16] MEDS: Docusate 100mg cap ORAL SCH ×2 (09:52→13:16)
[2018-08-16] MEDS: Vitamin B-12 500mcg tab ORAL SCH (09:53)
[2018-08-16] MEDS ORDERED: RESTORIL15 MG ORAL (10:20)
[2018-08-16] MEDS ORDERED: LOVENOX10 M4 SUBQ (10:20)
[2018-08-16 11:15] VITALS: BP 118/54
[2018-08-16 12:00] VITALS: BP 95/64
[2018-08-16 16:00] VITALS: BP 132/72
--- NOTE | 2018-08-17 03:30 | Discharge Summary ---
DATE OF ADMISSION: 08/11/2018 DATE OF DISCHARGE: 08/16/2018 ADMITTING DIAGNOSIS: Right hip fracture after a fall. DISCHARGE DIAGNOSIS: Right hip fracture after a fall status post hemiarthroplasty. HOSPITAL COURSE: The patient is a pleasant 67-year-old male, who fell walking out of his car. He sustained a right femoral neck fracture. He underwent a hemiarthroplasty, which he tolerated well. [facility], but declined and went home with home health. He was sent home with 10 days of Lovenox for DVT prophylaxis. He will follow up with his orthopedist in one to two weeks. DISCHARGE MEDICATIONS: Please see discharge medication list for discharge medications. DIET: Regular ACTIVITIES: Ad-jocelynn. Leandro Dietz M.D. DR: NEO JOB#: [id number] CC:
== END 2018-08-16 16:45 | disposition home health service (06) | DRG 470 ==
LOC: EDBD 19:38 → EMR 19:50 → 3E 21:21 → EDBEDREQ 21:54
PROC: 0SRR0JA Replacement of Right Hip Joint, Femoral Surface with Synthetic Substitute, Uncemented, Open Approach (ICD-10-PCS; principal; 2018-08-13 12:30)
DX: S72.011A Unspecified intracapsular fracture of right femur, initial encounter for closed fracture (principal); W01.0XXA Fall on same level from slipping, tripping and stumbling without subsequent striking against object, initial encounter; Y92.480 Sidewalk as the place of occurrence of the external cause
CPT/HCPCS: 36415; 72170; 80048; 80053; 85025; 85610; 85730; 86850; 86900; 86901; 93005; 94003; 94150; 96374; 96375; 99285; J2405; J3490